=== PATIENT | female | born 1940 | race Caucasian/White ===

== ENCOUNTER → 2020-10-22 | Outpatient (CLI) | payer MEDICARE | LOC: EXRD 13:24 | DX: M25.541 Pain in joints of right hand (principal); M25.542 Pain in joints of left hand; M54.2 Cervicalgia; G89.29 Other chronic pain; M47.812 Spondylosis without myelopathy or radiculopathy, cervical region; M85.842 Other specified disorders of bone density and structure, left hand; M85.841 Other specified disorders of bone density and structure, right hand | CPT/HCPCS: 72040; 73130 ==